=== PATIENT | male | born 1970 | race Caucasian/White ===

== ENCOUNTER 2021-08-11 18:29 | Emergency (ER) | payer OTHER, SELFPAY ==
[~2021-08-11] VITALS: Ht 182.9 cm; Wt 74.8 kg
[2021-08-11 20:54] VITALS: BP 145/96
[2021-08-11] MEDS ORDERED: MORPHINE SULFATE IM STA (21:04)
[2021-08-11] MEDS ORDERED: MORPHINE SULFATE ONE (21:10)
[2021-08-11] MEDS ORDERED: BOOSTRIX IM ONE ×2 (21:10→21:30)
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
[2021-08-11] MEDS ORDERED: DILAUDID IM STA (22:23)
[2021-08-11] MEDS ORDERED: ZOFRAN ODT SL STA (22:23)
[2021-08-11] MEDS ORDERED: ZOFRAN ODT ONE (22:39)
[2021-08-11] MEDS ORDERED: TRIPLE ANTIBIOTIC OINTMENT TP ONE (22:39)
[2021-08-11] MEDS ORDERED: DILAUDID ONE (22:39)
--- NOTE | 2021-08-11 22:40 | NUR ---
WOUNDCARE DRESSED WITH TELFA AND KERLEX
[2021-08-11 22:45] VITALS: BP 167/93
== END 2021-08-11 22:45 | disposition home or self-care (01) ==
LOC: ER 18:29
DX: T23.252A Burn of second degree of left palm, initial encounter (principal); T25.122A Burn of first degree of left foot, initial encounter; F12.90 Cannabis use, unspecified, uncomplicated; X15.8XXA Contact with other hot household appliances, initial encounter; Y93.89 Activity, other specified; Y92.89 Other specified places as the place of occurrence of the external cause; Y99.8 Other external cause status
CPT/HCPCS: 16020; 90471; 90715; 96372; 99284; J1170; J2270